=== PATIENT | female | born 1980 | race Caucasian/White ===

== ENCOUNTER 2016-12-11 05:36 | Emergency (ER) | payer OTHER ==
[~2016-12-11] VITALS: Ht 170.2 cm; Wt 124.5 kg
[~2016-12-11 05:36] MED LIST: ACET1TAB40 PO; HYDR-3498 PO; IBUP-1542 PO; MECL25TA2 PO; ONDA4TAB35 PO
[2016-12-11 05:41] VITALS: Ht 170.2 cm; Wt 124.5 kg
[2016-12-11] MEDS ORDERED: ONDANSETRON 4 MG INJ IV STA ×2 (07:21→09:50)
--- NOTE | 2016-12-11 07:29 | ERD ---
ER Documentation Chief Complaint Date/Time DATE: 12/11/16 TIME: 07:27 Chief Complaint upper abd pain x 5 days w/ vomiting HPI This 36-year-old female who presents to the emergency department today complaining of upper abdominal pain radiates to her back for the past 3-4 days that she states is getting worse. Patient states the pain is worse after food. States she has also had some nausea and vomiting. . Patient states she didn't follow-up after her last visit here for similar complaints and her doctor told her that it was gastritis.Denies any fevers or chills, chest pain or shortness of breath ROS All systems reviewed and are negative except as per history of present illness. Medications Home Meds Active Scripts Ibuprofen* (Motrin*) 800 Mg Tab, 800 MG PO Q6, #30 TAB Prov:SIMON BOWEN PA-C 12/11/16 Ondansetron Hcl* (Zofran*) 4 Mg Tablet, 4 MG PO Q6H for NAUSEA AND/OR VOMITING, #30 TAB Prov:SIMON BOWEN PA-C 12/11/16 Hydrocodone/Acetaminophen ([place] 10-325 Tablet) 1 Each Tablet, 1 TAB PO Q6H Y for PAIN, #20 TAB Prov:SIMON BOWEN PA-C 12/11/16 Hydrocodone Bit-Acetaminophen* ([place]*) 5-325 Mg Tab, 1 TAB PO Q6 Y for PAIN, # 20 TAB Prov:LUIS CHANG 06/11/16 Meclizine Hcl* (Antivert*) 25 Mg Tablet, 25 MG PO Q6H Y for dizziness, #20 TAB Prov:LUIS CHANG 07/31/15 Ondansetron Hcl* (Zofran* ODT) 4 mg -ODT Tab.disper, 4 MG PO Q6 Y for NAUSEA AND /OR VOMITING, #10 TAB Prov:CHO,DANIEL 04/23/15 Acetaminophen-Codeine* (Acetaminophen-Cod #3*) 300-30 Mg Tab, 1 TAB PO Q4H Y for PAIN LEVEL 6-10, #15 TAB Prov:CHO,DANIEL 04/23/ Ibuprofen* (Motrin*) 600 Mg Tab, 600 MG PO Q6 for PAIN LEVEL 1-5, #15 TAB Prov:CHO,DANIEL 6/18/15 Allergies Allergies: Coded Allergies: No Known Drug Allergy (Verified Allergy, Unknown, 10/28/13) PMhx/Soc History of Surgery: Yes ( ) Anesthesia Reaction: No Hx Neurological Disorder: No Hx Respiratory Disorders: No Hx Cardiac Disorders: No Hx Psychiatric Problems: No Hx Miscellaneous Medical Probl: No Hx Alcohol Use: No Hx Substance Use: No Hx Tobacco Use: No Physical Exam Vitals Vital Signs Date Time Temp Pulse Resp B/P Pulse Ox O2 Delivery O2 Flow Rate FiO2 12/11/16 05:41 98.9 94 20 117/78 99 Physical Exam Const: Obese, no acute distress Head: Atraumatic Eyes: Normal Conjunctiva ENT: Normal External Ears, Nose and Mouth. Neck: Full range of motion..~ No meningismus. Resp: Clear to auscultation bilaterally Cardio: Regular rate and rhythm, no murmurs Abd: Soft, epigastric, right upper quadrant tenderness non distended. Normal bowel sounds. No right lower quadrant pain. No tenderness in McBurney's. No left lower quadrant pain. Skin: No petechiae or rashes Back: No midline or flank tenderness Ext: No cyanosis, or edema Neur: Awake and alert Psych: Normal Mood and Affect Result Diagram: 12/11/16 0738 12/11/16 0738 Results 24 hrs Laboratory Tests Test 12/11/16 07:35 12/11/16 07:38 Urine Bacteria FEW Urine Bilirubin NEGATIVE Urine Clarity CLEAR Urine Color LT. YELLOW Urine Epithelial Cells FEW Urine Glucose NEGATIVE% Urine Hemoglobin TRACE Urine Ketones NEGATIVE Urine Leukocyte Esterase NEGATIVE Urine Microscopic RBC 0-2/HPF Urine Microscopic WBC 0-2/HPF Urine Nitrite NEGATIVE Urine Specific [place] >=1.030 Urine Total Protein NEGATIVE Urine Urobilinogen 0.2 E.U./dL Urine pH 6.0 Alanine Aminotransferase (ALT/SGPT) 24IU/L Albumin 4.0g/dl Albumin/Globulin Ratio 1.11 Alkaline Phosphatase 148IU/L Anion Gap 18 Aspartate Amino Transf (AST/SGOT) 30IU/L Basophils # 0.010^3/ul Basophils % 0.5% Blood Morphology Comment Blood Urea Nitrogen 14mg/dl Calcium Level 8.6mg/dl Carbon Dioxide Level 24mmol/L Chloride Level 103mmol/L Creatinine 0.61mg/dl Direct Bilirubin 0.00mg/dl Eosinophils # 0.110^3/ul Eosinophils % 1.1% Globulin 3.60g/dl Glucose Level 100mg/dl Hematocrit 37.8% Hemoglobin 12.7g/dl Indirect Bilirubin 0.1mg/dl Lipase 76U/L Lymphocytes # 1.610^3/ul Lymphocytes % 23.6% Mean Corpuscular Hemoglobin 27.6pg Mean Corpuscular Hemoglobin Concent 33.5g/dl Mean Corpuscular Volume 82.3fl Mean Platelet Volume 8.6fl Monocytes # 0.310^3/ul Monocytes % 4.9% Neutrophils # 4.710^3/ul Neutrophils % 69.9% Nucleated Red Blood Cells # 0.010^3/ul Nucleated Red Blood Cells % 0.0/100WBC Platelet Count 43308^3/UL Potassium Level 4.3mmol/L Red Blood Count 4.6010^6/ul Red Cell Distribution Width 14.6% Sodium Level 141mmol/L Total Bilirubin 0.1mg/dl Total Protein 7.6g/dl White Blood Count 6.810^3/ul Current Medications Medications (Trade) Dose Ordered Sig/Jeffrey Route PRN Reason Start Time Stop Time Status Last Admin Dose Admin Morphine Sulfate (morphine) 4 mg ONCE ONCE IM 12/11/16 07:30 12/11/16 07:31 DC 12/11/16 07:45 Ondansetron HCl (Zofran Inj) 4 mg ONCE STAT IV 12/11/16 07:21 12/11/16 07:23 DC 12/11/16 07:44 Famotidine (Pepcid Iv) 20 mg ONCE ONCE IV 12/11/16 07:30 12/11/16 07:31 DC 12/11/16 07:44 Hydromorphone HCl (Dilaudid) 1 mg ONCE STAT IV 12/11/16 09:05 12/11/16 09:06 DC 12/11/16 09:24 Ondansetron HCl (Zofran Inj) 4 mg ONCE STAT IV 12/11/16 09:50 12/11/16 09:51 DC 12/11/16 09:55 Procedures/MDM This is a 36-year-old female who presents to the emergency department today complaining of upper abdominal pain for the past 3-4 days that is been worsening. Patient was seen here in June 2006 and had an upper quadrant ultrasound that showed gallstones. Patient did indicate that she did follow up with her primary care doctor and was told that that was not the cause of her pain was likely gastritis. Given the patient's complaints today and did obtain laboratory work as well as a right upper quadrant ultrasound to rule out acute cholecystitis. Laboratory work shows no elevated white blood cell count. She is not anemic. Platelets are within normal limits. Electrolytes are within normal limits. Liver function is within normal limits. Lipase is within normal limits. UA is negative for infection. Urine test is negative. Patient has no lower abdominal pain and low suspicion for ectopic , tubo-ovarian abscess, ovarian torsion. Right upper quadrant ultrasound shows cholelithiasis with mild intrahepatic bile duct dilation with common bile duct measuring up to 10 mm. Patient was given Zofran, morphine, Pepcid here in the emergency department. She continued to complain of pain and therefore was given Dilaudid. He improved. Patient's symptoms at this time consistent with gallstones and biliary colic. Patient's lipase is not elevated and her liver functions within normal limits. I do not she requires admission at this time. Most patient for obstruction or gallstone pancreatitis. Patient has no right lower quadrant pain and no left lower quadrant pain and low suspicion for acute surgical abdomen, diverticulitis. I have explained the results of the patient. I explained her ultrasound. I explained to Her that she needs to follow-up with a primary care physician tomorrow and request referral for general surgery. I have also given her a list of resources for names. She'll be given a prescription for [place], Zofran and Motrin for home. Discussed the patient with Dr. Mao and he is in agreement with the plan. Departure Diagnosis: Primary Impression: Cholelithiasis Cholelithiasis location: gallbladder and bile duct Cholecystitis presence: without cholecystitis Biliary obstruction: without biliary obstruction Qualified Code: K80.70 - Calculus of gallbladder and bile duct without cholecystitis or obstruction Condition: SIMON Henry PA-C Dec 11, 2016 07:29
[2016-12-11] MEDS ORDERED: morphine 10 MG INJ IM ONE (07:30)
[2016-12-11] MEDS ORDERED: FAMOTIDINE 20 MG INJ IV ONE (07:30)
[2016-12-11 07:49] LABS: ADD UMIC YES; URINE BILIRUBIN (Dip) NEGATIVE (NEGATIVE); URINE BLOOD (Dip) TRACE (NEGATIVE); URINE COLOR LT. YELLOW (YELLOW); URINE GLUCOSE (Dip) NEGATIVE (NEGATIVE); URINE KETONES (Dip) NEGATIVE (NEGATIVE); URINE LEUKOCYTE ESTERASE (Dip) NEGATIVE (NEGATIVE); URINE NITRITE (Dip) NEGATIVE (NEGATIVE); URINE TOTAL PROTEIN (Dip) NEGATIVE (NEGATIVE); URINE UROBILINOGEN (Dip) 0.2 E.U./dL (0.1-1.0)
[2016-12-11 08:17] LABS: BACTERIA,URINE FEW; URINE RBCS 0-2 /HPF (0)
[2016-12-11 08:21] LABS: POTASSIUM 4.3 mmol/L (3.5-5.1)
[2016-12-11 08:23] LABS: BILIRUBIN,INDIRECT 0.1 mg/dl (0-1.1); BILIRUBIN,TOTAL 0.1 mg/dl (0.2-1.3); CREATININE 0.61 mg/dl (0.44-1.00)
[2016-12-11 08:24] LABS: ALBUMIN/GLOBULIN RATIO 1.11; CALCIUM 8.6 mg/dl (8.4-10.2); TOTAL PROTEIN 7.6 g/dl (6.1-8.1)
--- NOTE | 2016-12-11 08:24 | RADRPT ---
PROCEDURE: US Abdomen (Right upper quadrant) CLINICAL INDICATION: Abdominal pain. TECHNIQUE: Multiple real-time longitudinal and transverse images were acquired of the patient's ri ght upper quadrant utilizing a curved array transducer. COMPARISON: None. FINDINGS: Liver is normal in size and echogenicity. No focal liver mass. Portal vein demonstrates hepatopetal flow. Gallbladder demonstrate multiple gallstones. There is no gallbladder wall thickening or pericholecy stic fluid. There is mild extrahepatic bile duct dilatation without significant dilatation of intra hepatic biliary system. Pancreas is partially visualized and grossly unremarkable. Right kidney demonstrates no hydronephrosis or nephrolithiasis. No ascites. Proximal aorta and IVC are unremarkable. MEASUREMENTS: Liver: 16.2 cm Common Duct: 1.0 cm Right Kidney: 13.0 cm IMPRESSION: Cholelithiasis with mild intrahepatic bile duct dilatation with common bile duct measuring up to 10 mm. Recommend correlation with LFTs to exclude cholestasis. RPTAT: EE .Giorgio Ahmadi MD, MD Date Time Electronically viewed and signed by .Giorgio Ahmadi MD, on 12/11/2016 08:28 .C/
[2016-12-11 08:28] LABS: BASOPHILS % 0.5 % (0.0-2.0); EOSINOPHILS # 0.1 10^3/ul (0.0-0.5); EOSINOPHILS % 1.1 % (0.0-7.0); HEMATOCRIT 37.8 % (37.0-47.0); HEMOGLOBIN 12.7 g/dl (12.0-16.0); LYMPHOCYTES # 1.6 10^3/ul (0.8-2.9); LYMPHOCYTES % 23.6 % (15.0-51.0); MEAN CORPUSCULAR HEMOGLOBIN 27.6 pg (29.0-33.0); MEAN CORPUSCULAR HGB CONC 33.5 g/dl (32.0-37.0); MEAN CORPUSCULAR VOLUME 82.3 fl (82.0-101.0); MEAN PLATELET VOLUME 8.6 fl (7.4-10.4); MONOCYTE # 0.3 10^3/ul (0.3-0.9); MONOCYTES % 4.9 % (0.0-11.0); NEUTROPHIL # 4.7 10^3/ul (1.6-7.5); NEUTROPHILS % 69.9 % (39.0-77.0); PLATELET COUNT 318 10^3/UL (140-440); RED CELL DISTRIBUTION WIDTH 14.6 % (11.5-14.5); UNCORRECTED WBC 6.8 10^3/ul (4.8-10.8); WHITE BLOOD COUNT 6.8 10^3/ul (4.8-10.8)
[2016-12-11 08:32] LABS: CONDITION 1; LH ANALYZER COMMENTS 1
[2016-12-11] MEDS ORDERED: HYDROmorphONE 1 MG/ML SYG IV STA (09:05)
[2016-12-11] MEDS ORDERED: IBUP800T25 PO (10:14)
[2016-12-11] MEDS ORDERED: HYDR-902 PO (10:14)
[2016-12-11] MEDS ORDERED: ONDA4TAB8 PO (10:14)
[2016-12-11 10:26] VITALS: BP 120/75; PULSE 80; RESP 18; TEMP 98.9
== END 2016-12-11 10:28 | disposition home or self-care (01) ==
LOC: FTE 05:36
DX: K80.70 Calculus of gallbladder and bile duct without cholecystitis without obstruction (principal); R11.2 Nausea with vomiting, unspecified
CPT/HCPCS: 36415; 76705; 80053; 81001; 83690; 85025; 96372; 96374; 96375; 96376; J1170; J2270; J2405; Z7502; Z7610; 81003

== ENCOUNTER 2017-03-08 10:52 | Day surgery (SDC) | payer OTHER ==
[~2017-03-08] VITALS: Ht 170.2 cm; Wt 122.0 kg
[2017-03-08] VITALS (14 sets, daily range): BP systolic 97–121; BP diastolic 50–73; PULSE 60–87; RESP 14–26; Ht 170.2 cm; Wt 122.0 kg
[~2017-03-08 10:52] MED LIST changes: +HYDR-902 PO; +IBUP800T25 PO; +ONDA4TAB8 PO
[2017-03-08] MEDS ORDERED: SOD CHLORIDE 0.9% 1,000 ML IV SCH (12:00)
[2017-03-08] MEDS ORDERED: CEFAZOLIN 2 GM/50 ML (PMX) 50 ML IVPB ONE (12:00)
[2017-03-08 12:28] LABS: INR 0.93; PROTIME 12.5 Sec (12.2-14.2)
[2017-03-08 13:12] LABS: PARTIAL THROMBOPLASTIN TIME 35.8 Sec (25.0-35.0)
[2017-03-08] MEDS ORDERED: BUPIVACAINE 0.25% (MPF) 30 ML INJ ONE (13:52)
[2017-03-08] MEDS ORDERED: MIDAZOLAM 1 MG/ML 2 ML INJ ONE (13:59)
[2017-03-08] MEDS ORDERED: GLYCOPYRROLATE 0.4 MG INJ ONE (14:48)
[2017-03-08] MEDS ORDERED: NEOSTIGMINE 3 MG/3 ML SYRINGE ONE (14:48)
[2017-03-08] MEDS ORDERED: ROCURONIUM 50 MG INJ ONE (14:48)
[2017-03-08] MEDS ORDERED: ONDANSETRON 4 MG INJ ONE (14:48)
[2017-03-08] MEDS ORDERED: LIDOCAINE 2% (SDV) 5 ML INJ ONE (14:48)
[2017-03-08] MEDS ORDERED: PROPOFOL 40 ML ONE (14:48)
[2017-03-08] MEDS: HYDROmorphONE (0.2 MG/ML) 10ML SYG IV PRN ×5 (14:57→15:51)
[2017-03-08] MEDS ORDERED: HYDROCODONE/APAP (5/325) TAB PO ONE (15:00)
[2017-03-08] MEDS ORDERED: DIPHENHYDRAMINE 50 MG INJ IV PRN (15:00)
[2017-03-08] MEDS ORDERED: MEPERIDINE 25 MG INJ IV PRN (15:00)
[2017-03-08] MEDS ORDERED: HYDROmorphONE (0.2 MG/ML) 10ML SYG IV PRN (15:00)
[2017-03-08] MEDS ORDERED: ONDANSETRON 4 MG INJ IV PRN (15:00)
--- NOTE | 2017-03-08 15:06 | OPR ---
DATE OF OPERATION: 03/08/2017 INDICATION: This is a 36-year-old female with symptomatic gallstones. She requests surgical excisi on. Risks, alternatives, benefits and personnel discussed with patient. The patient expressed unde rstanding, consents to the operation. PREOPERATIVE DIAGNOSIS: Symptomatic gallstones. POSTOPERATIVE DIAGNOSIS: Symptomatic gallstones. OPERATIONS PERFORMED: 1. [place]aroscopic [place] [address]. 2. Therapeutic injection [place] [address]. SURGEON: Mariela Alcantara MD SPECIMENS: Gallbladder. COMPLICATIONS: None. ANESTHESIA: General. PROCEDURE: The patient was taken to the OR and prepped and draped in usual sterile fashion. Surgic al timeout was performed. IV antibiotics were given. Infraumbilical transverse incision was made w ith a 15 blade. Dissection cautery was carried down to the fascia, which was divided with curved Ma yo scissors. An 0 Vicryl U-stitch was placed in the fascia, balloon and Zachary trocars introduced. Pneumoperitoneum was established. Midepigastric 12 mm optical trocar was placed under direct visua lization. Right upper quadrant and right upper flank 5 mm optical trocars are placed under direct v isualization. Upon initial inspection, there were some adhesions to the gallbladder which were take n down bluntly. The cystic duct was identified. The critical view was established. The cystic rafaela t was divided using a 35 mm Escalante vascular stapler. The cystic artery was divided using a 35 mm E chelon vascular stapler. Clips were applied to both staple lines. Gallbladder was taken off the ga llbladder bed. There was good hemostasis. Gallbladder was retrieved using an EndoCatch bag. Ports removed under direct visualization, 0 Vicryl U-stitch tied down. Skin was closed using skin staple s. Local anesthesia was injected to all incision sites. Dry dressings were applied. Dictated By: MARIELA BRODY/LEX Conf#: [id number] DID#: [id number]
[2017-03-08] MEDS: FENTAnyl 50 MCG/ML VIAL IV PRN ×2 (15:19→15:31)
== END 2017-03-08 17:30 | disposition home or self-care (01) ==
LOC: SDS 10:52
PROVIDERS: ATTEND Surgery
DX: K80.10 Calculus of gallbladder with chronic cholecystitis without obstruction (principal); E66.01 Morbid (severe) obesity due to excess calories; Z68.41 Body mass index [BMI] 40.0-44.9, adult
CPT/HCPCS: 47562; 84703; 85610; 85730; 88304; J1170; J2250; J2405; J2710; J3010; Z7512; Z7610

== ENCOUNTER 2017-04-23 15:50 | Emergency (ER) | payer OTHER ==
[~2017-04-23] VITALS: Ht 170.2 cm; Wt 122.0 kg
[2017-04-23 15:52] VITALS: Ht 170.2 cm; Wt 122.0 kg
[2017-04-23] MEDS ORDERED: BEN25 PO (16:17)
[2017-04-23] MEDS ORDERED: CEPH-443 PO (16:17)
[2017-04-23] MEDS ORDERED: MUPI22OI2 TOP (16:17)
--- NOTE | 2017-04-23 16:21 | ERD ---
ER Documentation Chief Complaint Date/Time DATE: 04/23/17 TIME: 16:19 Chief Complaint Complains of insect bite with swelling HPI 6-year-old female comes in with multiple insect bite wounds to her right upper and left upper extremities that started 2 days ago. Patient states that it is slightly burning and is discharging clearish fluid. They are itchy, slightly painful to touch. [place] No recent travel associated. Denies fevers, neck stiffness, vomiting, diarrhea or dizziness. ROS All systems reviewed and are negative except as per history of present illness. Medications Home Meds Active Scripts Diphenhydramine Hcl* (Benadryl*) 25 Mg Cap, 25 MG PO Q6, #30 CAP Prov:LITA MEJIA PA-C 04/23/17 Mupirocin* (Bactroban*) 2% -22 Gram Oint...g., 1 APPLIC TOP BID for 7 Days, EA Prov:LITA MEJIA PA-C 04/23/17 Cephalexin* (Keflex*) 500 Mg Capsule, 500 MG PO QID for 5 Days, CAP Prov:LITA MEJIA PA-C 04/23/17 Allergies Allergies: Coded Allergies: No Known Drug Allergy (Verified Allergy, Unknown, 03/08/17) PMhx/Soc History of Surgery: Yes (C SECTION X4) Anesthesia Reaction: No Hx Neurological Disorder: No Hx Respiratory Disorders: No Hx Cardiac Disorders: No Hx Psychiatric Problems: No Hx Miscellaneous Medical Probl: No Hx Alcohol Use: No Hx Substance Use: No Hx Tobacco Use: No Physical Exam Vitals Vital Signs Date Time Temp Pulse Resp B/P Pulse Ox O2 Delivery O2 Flow Rate FiO2 04/23/17 15:52 98.4 78 20 143/89 98 Physical Exam General: Well-developed, well-nourished. The patient appears in no acute distress. HEENT: Head is normocephalic, atraumatic. No scleral icterus. Neck: Supple. Nontender. Lungs: Clear to auscultation. Normal air movement. Heart: Regular rate and rhythm. S1 and S2 are normal. No murmurs, gallops, or rubs. Abdomen: Nondistended. Extremities: No clubbing or cyanosis. Moving extremities x 4. No weakness. Neurologic: Alert and oriented 3. No focal deficits. Normal speech and gait. Skin: 2 insect bite wounds on the right upper extremity, one on the left, there is slightly indurated, erythematous, clear discharge coming out. Procedures/MDM 36-year-old female comes in with multiple insect bite wounds, hydrocephalus appreciated on examination. She complains of itching, she will be given Benadryl, and possible topical Bactroban and Keflex. She should return for any worsening symptoms including fevers. There are no signs of any systemic complaints, I doubt West Nile virus, malaria, abscess, systemic infection.. Departure Diagnosis: Primary Impression: Insect bite Condition: Good Patient Instructions: Insect Bites and Stings Additional Instructions: Call your primary care doctor TOMORROW for an appointment during the next 1-2 days.See the doctor sooner or return here if your condition worsens before your appointment time. LITA MEJIA PA-C Apr 23, 2017 16:21
== END 2017-04-23 16:48 | disposition home or self-care (01) ==
LOC: FTE 15:50
DX: S60.561A Insect bite (nonvenomous) of right hand, initial encounter (principal); S60.562A Insect bite (nonvenomous) of left hand, initial encounter; W57.XXXA Bitten or stung by nonvenomous insect and other nonvenomous arthropods, initial encounter; Y92.9 Unspecified place or not applicable
CPT/HCPCS: 99284

== ENCOUNTER 2017-12-01 12:56 | Emergency (ER) | END 2017-12-01 14:52 | disposition home or self-care (01) ==

== ENCOUNTER 2018-09-14 18:52 | Emergency (ER) | END 2018-09-14 21:59 | disposition home or self-care (01) ==

== ENCOUNTER 2019-04-27 09:48 | Emergency (ER) | payer OTHER ==
[~2019-04-27] VITALS: Ht 170.2 cm; Wt 127.0 kg
[~2019-04-27 09:48] MED LIST changes: -ACET1TAB40 PO; +BEN25 PO; +CEPH-443 PO; +GUAI1TBM12 PO; -HYDR-3498 PO; -HYDR-902 PO; -IBUP800T25 PO; +IPRA15SP NS; -MECL25TA2 PO; +MEDR10TA2 PO; +MUPI22OI2 TOP; -ONDA4TAB35 PO; -ONDA4TAB8 PO
[2019-04-27 09:52] VITALS: Ht 170.2 cm; Wt 127.0 kg
[2019-04-27] MEDS ORDERED: ACETAMINOPHEN 500 MG TAB PO STA (10:45)
--- NOTE | 2019-04-27 10:50 | ERD ---
ER Documentation Chief Complaint Chief Complaint RT BREAST PAIN X 2 MONTHS , COUGH X 2 WEEKS HPI This is a 38-year-old female patient presents emergency room with complaint of right breast pain x 2 months, cough x2 weeks, and left thumb pain x2 days. Breast Pain: Patient describes pain to lateral right breast, no redness, no nipple discharge, no fevers, no abdominal pain, no nausea vomiting. Patient states she had the same thing last year was evaluated with an ultrasound without abnormality, pain resolved on its own. No family history of breast cancer. Patient is not breast-feeding. Cough: Dry cough with nasal congestion x2 weeks. No shortness of breath, no chest pain. Left Thumb Pain: Bruising to left thumb x2 days, patient does not recall injuring her thumb, limited range of motion due to pain and minor swelling. ROS All systems reviewed and are negative except as per history of present illness. Medications Home Meds Active Scripts Ibuprofen* (Motrin*) 800 Mg Tab, 800 MG PO Q6 for pain for 7 Days, #30 TAB Prov:LOBO WILHELM NP 04/27/19 Ibuprofen* (Motrin*) 600 Mg Tab, 600 MG PO Q6H PRN for PAIN AND OR ELEVATED TEMP, #30 TAB Prov:MELINA VIGIL PA-C 09/14/18 Medroxyprogesterone Acetate* (Provera*) 10 Mg Tablet, 20 MG PO DAILY, #10 TAB Prov:MELINA VIGIL PA-C 09/14/18 Guaifenesin/Dextromethorphan (Mucinex Dm ER 1,200-60 mg Tab) 1 Each Tbmp.12hr, 1 EACH PO BID for 5 Days, TAB Prov:JANEY,TIMOTEO 12/01/17 Ipratropium [place] (Ipratropium [place]) 15 Ml [place], 2 SPR NS QID for 7 Days, #15 ML Prov:JANEY,TIMOTEO 12/01/17 Diphenhydramine Hcl* (Benadryl*) 25 Mg Cap, 25 MG PO Q6, #30 CAP Prov:LITA MEJIA PA-C 04/23/17 Mupirocin* (Bactroban*) 2% -22 Gram Oint...g., 1 APPLIC TOP BID for 7 Days, EA Prov:LITA MEJIA PA-C 04/23/17 Cephalexin* (Keflex*) 500 Mg Capsule, 500 MG PO QID for 5 Days, CAP Prov:LITA MEJIA PA-C 04/23/17 Allergies Allergies: Coded Allergies: No Known Drug Allergy (Verified Allergy, Unknown, 03/08/17) PMhx/Soc History of Surgery: Yes (C SECTION X4) Anesthesia Reaction: No Hx Neurological Disorder: No Hx Respiratory Disorders: No Hx Cardiac Disorders: No Hx Psychiatric Problems: No Hx Miscellaneous Medical Probl: No Hx Alcohol Use: No Hx Substance Use: No Hx Tobacco Use: No FmHx Family History: No diabetes, No coronary disease, No other Physical Exam Vitals Vital Signs Date Temp Pulse Resp B/P (MAP) Pulse Ox O2 O2 Flow FiO2 Time Delivery Rate 04/27/19 98.0 90 16 138/80 98 Room Air 14:08 (99) 04/27/19 99.2 110 18 135/81 97 09:52 (99) Physical Exam Const: No acute distress Head: Atraumatic Eyes: Normal Conjunctiva, PERRL ENT: Normal External Ears, Nose and Mouth. Pharynx red, moist, no lesions, no exudate, uvula midline. Neck: Full range of motion. No meningismus. No lymphadenopathy Resp: Clear to auscultation bilaterally, no wheezing rales or rhonchi Cardio: Regular rate and rhythm, no murmurs Abd: Soft, non tender, non distended. Normal bowel sounds, no hepato-or splenomegaly Skin: No petechiae or rashes Right Breast Exam: no lymphadenopathy in TOS, no nipple discharge, skin without lesions or dimpling, color consistent for ethnicity, normothermic, small pea- sized solid lesion palpated @ 8:00 and only site of tenderness Back: No midline or flank tenderness, no CVT tenderness Ext: No cyanosis, or edema. Left thumb: sensation intact, cap refill <2 sec, +OK sign, +thumbs up sign Neur: Awake and alert Psych: Normal Mood and Affect Result Diagram: 04/27/19 1100 04/27/19 1100 Results 24 hrs Laboratory Tests Test 04/27/19 11:00 04/27/19 11:11 04/27/19 11:15 White Blood Count 7.1 10^3/ul Red Blood Count 5.00 10^6/ul Hemoglobin 13.8 g/dl Hematocrit 42.0 % Mean Corpuscular Volume 84.0 fl Mean Corpuscular Hemoglobin 27.6 pg Mean Corpuscular 32.9 g/dl Hemoglobin Concent Red Cell Distribution Width 14.2 % Platelet Count 319 10^3/UL Mean Platelet Volume 9.6 fl Immature Granulocytes % 0.300 % Neutrophils % 63.4 % Lymphocytes % 27.3 % Monocytes % 7.6 % Eosinophils % 0.8 % Basophils % 0.6 % Nucleated Red Blood Cells % 0.0 /100WBC Immature Granulocytes # 0.020 10^3/ul Neutrophils # 4.5 10^3/ul Lymphocytes # 1.9 10^3/ul Monocytes # 0.5 10^3/ul Eosinophils # 0.1 10^3/ul Basophils # 0.0 10^3/ul Nucleated Red Blood Cells # 0.0 10^3/ul Sodium Level 142 mmol/L Potassium Level 3.8 mmol/L Chloride Level 106 mmol/L Carbon Dioxide Level 26 mmol/L Anion Gap 10 Blood Urea Nitrogen 7 mg/dl Creatinine 0.66 mg/dl Est Glomerular Filtrat > 60 mL/min Rate mL/min Glucose Level 103 mg/dl Calcium Level 9.1 mg/dl Urine Color YELLOW Urine Clarity SLIGHTLY CLOUDY Urine pH 6.0 Urine Specific [place] 1.013 Urine Ketones TRACE mg/dL Urine Nitrite NEGATIVE mg/dL Urine Bilirubin NEGATIVE mg/dL Urine Urobilinogen NEGATIVE mg/dL Urine Leukocyte Esterase TRACE [place]/ul Urine Microscopic RBC 5 /HPF Urine Microscopic WBC 5 /HPF Urine Squamous Epithelial Cells MODERATE /HPF Urine Bacteria FEW /HPF Urine Mucus FEW /HPF Urine Hemoglobin NEGATIVE mg/dL Urine Glucose NEGATIVE mg/dL Urine Total Protein NEGATIVE mg/dl Urine Test NEGATIVE POC Beta HCG, Qualitative NEGATIVE Current Medications Medications Dose Sig/Jeffrey Start Time Status Last (Trade) Ordered Route PRN Stop Time Admin Dose Reason Admin 1,000 mg ONCE STAT 04/27/19 DC 04/27/19 Acetaminophen PO 10:45 11:08 (Tylenol 04/27/19 10:50 Tab) Procedures/MDM PROCEDURES/MDM DIAGNOSTIC IMAGING: Read by radiologist. US right breast IMPRESSION: 1. No gross abnormal masses or focal fluid collections noted within all 4 quadrants of the right breast on provided sonographic images. Recommend formal workup with mammography, if clinically indicated. Left 1st finger IMPRESSION: Unremarkable left first finger . PROCEDURES: Splint application left thumb. +csm after application. LAB INTERPRETATION: No leukocytosis, no electrolyte imbalance, no UTI. -Medications: Tylenol Patient tolerated medication well with no adverse reactions. Patient reported improvement in pain. MDM: Right Breast Pain: Low suspicion for mastitis due to absence of erythema, swelling, hot to touch, nipple discharge, fevers, leukocytosis. Ultrasound negative for abscess, mass, neoplasm. Patient is in the middle of her menstrual cycle and also has a URI, the pain may be related to viral syndrome. Cough: Low suspicion for pneumonia or bacterial bronchitis due to clear lung sounds, lack of fever, lack of sputum production. Given the cough with nasal congestion, redness to back of throat and duration of symptoms, patient is most likely experiencing viral syndrome or postnasal drip. Left thumb pain: Although there is minor swelling and some bruising, x-ray does not reveal fracture, dislocation, infectious process. Thumb has been splinted with instructions for repeat evaluation at primary care provider. DISPOSITION and PLAN: RX: Ibuprofen The patient has been discharge home to follow-up with community physician. Patient has been instructed that she may need mammogram of right breast, she needs to discuss this with her primary care provider. Patient instructed on red flags such as redness, swelling, fever and instructed to return immediately to the emergency department with any worsening or changing of symptoms. Departure Diagnosis: Primary Impression: Breast pain, right Additional Impressions: Pain of left thumb Cough Condition: Stable LOBO WILHELM NP Apr 27, 2019 10:50
[2019-04-27] MEDS ORDERED: IBUP800T48 PO (13:30)
[2019-04-27 14:08] VITALS: BP 138/80; PULSE 90; RESP 16
== END 2019-04-27 14:09 | disposition home or self-care (01) ==
LOC: FTE 09:48
DX: N64.4 Mastodynia (principal); M79.645 Pain in left finger(s); R05 Cough
CPT/HCPCS: 29130; 73140; 76642; 80048; 81001; 81025; 84703; 85025; Z7502; Z7610